=== PATIENT | male | born 1950 | race Caucasian/White ===

== ENCOUNTER 2019-08-18 12:37 | Inpatient (IN) | payer MEDICARE ==
[~2019-08-18] VITALS: Ht 167.6 cm; Wt 111.6 kg
[2019-08-18 12:37] VITALS: BP_SYST 165
[2019-08-18] MEDS ORDERED: ASPIRIN 81 MG TAB.CHEW PO ONE (12:45)
[2019-08-18] MEDS ORDERED: NITROGLYCERIN 1 INCH (GM) OINT. TP ONE (12:45)
[2019-08-18 13:22] LABS: BASOPHILS # (AUTO) 0.1 K/uL (0.0-0.2); EOSINOPHILS % (AUTO) 0.3 % (0.0-4.0); HEMATOCRIT 42.4 % (36-54); HEMOGLOBIN 13.3 g/dL (14.0-18.0); LYMPHOCYTES # (AUTO) 0.9 K/uL (1.0-5.5); LYMPHOCYTES % (AUTO) 9.4 % (20.5-51.5); MEAN CORPUSCULAR HEMOGLOBIN 25 pg (27-31); MEAN CORPUSCULAR HGB CONC 31 % (32-36); MEAN CORPUSCULAR VOLUME 80 fL (79.0-98.0); MONOCYTES # (AUTO) 0.6 K/uL (0.0-1.0); MONOCYTES % (AUTO) 5.9 % (1.7-9.3); NEUTROPHILS # (AUTO) 8.1 K/uL (1.8-7.7); NEUTROPHILS % (AUTO) 83.4 % (40.0-70.0); PLATELET COUNT (AUTO) 427 K/uL (130-430); RED BLOOD CELL COUNT(AUTO) 5.31 MIL/uL (4.2-6.2); WHITE BLOOD COUNT (AUTO) 9.7 K/uL (4.8-10.8)
[2019-08-18 13:36] LABS: CALCIUM 9.4 mg/dL (8.4-11.0); CREATININE 0.92 mg/dL (0.55-1.30); POTASSIUM 3.9 mmol/L (3.5-5.1)
[2019-08-18 13:40] LABS: INR 1.1 (0.80-1.20)
[2019-08-18 13:41] LABS: ALBUMIN 3.8 g/dL (3.4-4.8); TOTAL BILIRUBIN 0.7 mg/dL (0.0-1.0)
[2019-08-18] MEDS ORDERED: FUROSEMIDE 40 MG/4 ML VIAL IVP ONE (13:45)
[2019-08-18] MEDS ORDERED: LEVOFLOXACIN 500 MG/D5W 100 ML IV ONE (14:30)
[2019-08-18] MEDS ORDERED: ALBUTEROL SULFATE 0.083% 2.5 MG/3 ML VIAL.NEB INH ONE (14:30)
[2019-08-18] MEDS ORDERED: NACL 0.9% 1,000 ML IV ONE (14:30)
[2019-08-18 15:12] LABS: BILIRUBIN,URINE NEGATIVE (NEGATIVE); CLARITY/URINE CLEAR (CLEAR); COLOR,URINE YELLOW (YELLOW); GLUCOSE,URINE NEGATIVE (NEGATIVE); KETONES,URINE NEGATIVE (NEGATIVE); LEUKOCYTE ESTERASE ,URINE NEGATIVE (NEGATIVE); NITRITE, URINE NEGATIVE (NEGATIVE); PH,URINE 5.5 (5.0-8.0); PROTEIN URINE NEGATIVE (NEGATIVE); UROBILINOGEN,URINE 0.2 (0.2-1.0)
[2019-08-18 15:15] LABS: BLOOD, URINE TRACE (NEGATIVE)
[2019-08-18 15:21] LABS: BACTERIA,URINE RARE /HPF (None Seen); WBC,URINE 0-3 /HPF (0-3)
[2019-08-18 15:22] LABS: MUCUS,URINE 1+ /LPF (None Seen)
[2019-08-18 15:23] LABS: BARBITURATE, URINE NEGATIVE (NEG <=200); BENZODIAZEPINE, URINE NEGATIVE (NEG <=150); CANNABINOID, URINE NEGATIVE (NEG <=50); COCAINE, URINE NEGATIVE (NEG <=150); METHAMPHETAMINES SCREEN,URINE NEGATIVE (NEG <=500); OPIATE, URINE NEGATIVE (NEG <=100); PHENCYCLIDINE SCREEN,URINE NEGATIVE (NEG <=25); UR TRICYCLIC ANTIDEPRESSANTS NEGATIVE (NEG <=300); URINE AMPHETAMINE NEGATIVE (NEG <=500); URINE METHADONE NEGATIVE (NEG <=200); URINE OXYCODONE SCREEN NEGATIVE (NEG <=100); URINE PROPOXYPHENE SCREEN NEGATIVE (NEG <=300)
[2019-08-18 15:34] LABS: FREE T4 (FREE THYROXINE) 1.3 ng/dl (0.8-1.5); THYROID STIMULATING HORMONE 2.67 uIu/mL (0.36-3.74)
[2019-08-18 15:47] LABS: ALCOHOL, BLOOD < 3 mg/dL (<10)
[2019-08-18] MEDS ORDERED: IPRATROPIUM/ALBUTEROL SULFATE 3 ML AMPUL.NEB (DUONEB) INH PRN (17:30)
[2019-08-18] MEDS ORDERED: ACETAMINOPHEN 325 MG TABLET PO PRN (17:30)
[2019-08-18 17:40] VITALS: BP_SYST 128
[2019-08-18] MEDS ORDERED: IOHEXOL 350 mgI/mL, 150 ML INFUS..BTL IV ONE (18:37)
[2019-08-18 18:58] VITALS: BP_SYST 126
[2019-08-18 20:00] VITALS: BP_SYST 114
[2019-08-18] MEDS: LEVOFLOXACIN 500 MG/D5W 100 ML IV SCH (20:24)
[2019-08-18] MEDS: INSULIN LISPRO SLIDING SCALE 100 UNITS/ML VIAL (humaLOG) SUBCUT PRN (20:34)
[2019-08-18] MEDS ORDERED: NACL 0.9% 1,000 ML IV SCH (22:30)
[2019-08-18] MEDS ORDERED: METOPROLOL TARTRATE 25 MG TABLET PO ONE (22:30)
[2019-08-18 23:59] VITALS: BP_SYST 134
[2019-08-19 05:55] LABS: ALBUMIN 3.5 g/dL (3.4-4.8); CALCIUM 8.9 mg/dL (8.4-11.0); CREATININE 0.97 mg/dL (0.55-1.30); POTASSIUM 3.5 mmol/L (3.5-5.1); THYROID STIMULATING HORMONE 3.08 uIu/mL (0.36-3.74); TOTAL BILIRUBIN 0.5 mg/dL (0.0-1.0)
[2019-08-19] MEDS ORDERED: METOPROLOL TARTRATE 25 MG TABLET PO ONE (06:00)
[2019-08-19 06:29] LABS: BASOPHILS # (AUTO) 0.1 K/uL (0.0-0.2); BASOPHILS % (AUTO) 0.7 % (0.0-2.0); EOSINOPHILS # (AUTO) 0.1 K/uL (0.0-0.4); EOSINOPHILS % (AUTO) 1.3 % (0.0-4.0); HEMOGLOBIN 13.1 g/dL (14.0-18.0); LYMPHOCYTES # (AUTO) 1.2 K/uL (1.0-5.5); LYMPHOCYTES % (AUTO) 13.7 % (20.5-51.5); MEAN CORPUSCULAR HEMOGLOBIN 25 pg (27-31); MEAN CORPUSCULAR HGB CONC 31 % (32-36); MEAN CORPUSCULAR VOLUME 79 fL (79.0-98.0); MONOCYTES # (AUTO) 0.7 K/uL (0.0-1.0); MONOCYTES % (AUTO) 8.1 % (1.7-9.3); NEUTROPHILS # (AUTO) 6.9 K/uL (1.8-7.7); NEUTROPHILS % (AUTO) 76.2 % (40.0-70.0); PLATELET COUNT (AUTO) 397 K/uL (130-430); RED BLOOD CELL COUNT(AUTO) 5.29 MIL/uL (4.2-6.2); RED CELL DISTRIBUTION WIDTH 17.3 % (9.0-15.0)
[2019-08-19 08:00] VITALS: BP_SYST 95
[2019-08-19 12:00] VITALS: BP_SYST 117
[2019-08-19] MEDS: INSULIN LISPRO SLIDING SCALE 100 UNITS/ML VIAL (humaLOG) SUBCUT PRN ×2 (12:11→21:03)
[2019-08-19] MEDS ORDERED: METF1000 PO (14:15)
[2019-08-19] MEDS ORDERED: NOR10 PO (14:15)
[2019-08-19] MEDS ORDERED: LEVO125T8 PO (14:15)
[2019-08-19] MEDS ORDERED: LIP10 PO (14:15)
[2019-08-19] MEDS ORDERED: GLIP10TA11 PO (14:15)
[2019-08-19] MEDS ORDERED: FINA5TAB3 PO (14:15)
[2019-08-19] MEDS ORDERED: CYAN100010 PO (14:15)
[2019-08-19] MEDS ORDERED: ASPI-1153 PO (14:15)
[2019-08-19] MEDS ORDERED: FUROSEMIDE 20 MG/2 ML VIAL IVP ONE (15:15)
[2019-08-19] MEDS ORDERED: IPRATROPIUM/ALBUTEROL SULFATE 3 ML AMPUL.NEB (DUONEB) INH PRN (15:15)
[2019-08-19 16:00] VITALS: BP_SYST 129
[2019-08-19] MEDS: LEVOFLOXACIN 500 MG/D5W 100 ML IV SCH (17:02)
[2019-08-19 20:00] VITALS: BP_SYST 112
[2019-08-19] MEDS: CARVEDILOL 12.5 MG TABLET (COREG) PO SCH (20:56)
[2019-08-19] MEDS: FUROSEMIDE 20 MG/2 ML VIAL IVP SCH (20:57)
[2019-08-20] VITALS: BP_SYST 93
[2019-08-20 06:51] LABS: BASOPHILS # (AUTO) 0.1 K/uL (0.0-0.2); BASOPHILS % (AUTO) 0.8 % (0.0-2.0); EOSINOPHILS # (AUTO) 0.2 K/uL (0.0-0.4); EOSINOPHILS % (AUTO) 1.6 % (0.0-4.0); HEMATOCRIT 40.9 % (36-54); HEMOGLOBIN 12.7 g/dL (14.0-18.0); LYMPHOCYTES # (AUTO) 1.2 K/uL (1.0-5.5); LYMPHOCYTES % (AUTO) 12.2 % (20.5-51.5); MEAN CORPUSCULAR HEMOGLOBIN 25 pg (27-31); MEAN CORPUSCULAR HGB CONC 31 % (32-36); MEAN CORPUSCULAR VOLUME 79 fL (79.0-98.0); MONOCYTES # (AUTO) 0.7 K/uL (0.0-1.0); MONOCYTES % (AUTO) 7.6 % (1.7-9.3); NEUTROPHILS # (AUTO) 7.7 K/uL (1.8-7.7); NEUTROPHILS % (AUTO) 77.8 % (40.0-70.0); PLATELET COUNT (AUTO) 343 K/uL (130-430); RED BLOOD CELL COUNT(AUTO) 5.15 MIL/uL (4.2-6.2); RED CELL DISTRIBUTION WIDTH 17.4 % (9.0-15.0); WHITE BLOOD COUNT (AUTO) 9.8 K/uL (4.8-10.8)
[2019-08-20 07:22] LABS: ALANINE AMINOTRANSFERASE 33 U/L (12-78); ALBUMIN 3.1 g/dL (3.4-4.8); ANION GAP 5 (5-15); ASPARTATE AMINOTRANSFERASE 22 U/L (10-37); CHLORIDE 105 mmol/L (98-107); CREATININE 0.96 mg/dL (0.55-1.30); GLUCOSE 151 mg/dL (70-99); POTASSIUM 4.6 mmol/L (3.5-5.1); SODIUM SERUM 142 mmol/L (136-145); TOTAL BILIRUBIN 0.6 mg/dL (0.0-1.0); UREA NITROGEN, BLOOD 26 mg/dL (8-21)
[2019-08-20 07:25] LABS: GFR AFRICAN AMERICAN 101 mL/min (>90)
[2019-08-20 07:44] LABS: INR 1.1 (0.80-1.20); PROTHROMBIN TIME 11.5 SECS (9.5-12.5)
[2019-08-20 08:08] VITALS: BP_SYST 103
[2019-08-20] MEDS: CARVEDILOL 12.5 MG TABLET (COREG) PO SCH (08:14)
[2019-08-20] MEDS: FUROSEMIDE 20 MG/2 ML VIAL IVP SCH (08:14)
[2019-08-20 08:36] LABS: CHOLESTEROL 91 mg/dL (<200); HDL CHOLESTEROL 57 mg/dL (>45); LDL CHOLESTEROL 26 mg/dL (<100); TRIGLYCERIDES 50 mg/dL (30-150)
[2019-08-20] MEDS ORDERED: APIXABAN 2.5 MG TABLET PO ONE (09:45)
[2019-08-20] MEDS: INSULIN LISPRO SLIDING SCALE 100 UNITS/ML VIAL (humaLOG) SUBCUT PRN (11:45)
[2019-08-20 12:15] VITALS: BP_SYST 108
[2019-08-20 12:52] VITALS: BP_SYST 108
[2019-08-20] MEDS ORDERED: APIXABAN 2.5 MG TABLET PO SCH (21:00)
== END 2019-08-20 14:41 | disposition short-term general hospital (02) | DRG 291 ==
LOC: SED 12:37 → STU 14:39
PROVIDERS: ADMIT Internal Medicine; ATTEND Internal Medicine
DX: I11.0 Hypertensive heart disease with heart failure (principal); R65.11 Systemic inflammatory response syndrome (SIRS) of non-infectious origin with acute organ dysfunction; J91.8 Pleural effusion in other conditions classified elsewhere; I50.43 Acute on chronic combined systolic (congestive) and diastolic (congestive) heart failure; I42.0 Dilated cardiomyopathy; E66.01 Morbid (severe) obesity due to excess calories; E11.9 Type 2 diabetes mellitus without complications; E03.9 Hypothyroidism, unspecified; I45.10 Unspecified right bundle-branch block; F03.90 Unspecified dementia, unspecified severity, without behavioral disturbance, psychotic disturbance, mood disturbance, and anxiety; K21.9 Gastro-esophageal reflux disease without esophagitis; N40.0 Benign prostatic hyperplasia without lower urinary tract symptoms; Z68.39 Body mass index [BMI] 39.0-39.9, adult; Z79.899 Other long term (current) drug therapy; Z80.6 Family history of leukemia; Z85.72 Personal history of non-Hodgkin lymphomas; Z87.891 Personal history of nicotine dependence; Z92.3 Personal history of irradiation; Z79.82 Long term (current) use of aspirin; Z79.84 Long term (current) use of oral hypoglycemic drugs
CPT/HCPCS: 36415; 36600; 71045; 71275; 80053; 80061; 80307; 81000-TC; 82803-TC; 82962; 83605; 83880; 84439; 84443-TC; 84484; 85025; 85379; 85610-TC; 87040-TC; 93005; 93306; 94640; 96365; 96375; 99285; G0378; G0482; J1940; J1956; J7030; J7613; Q9967